=== PATIENT | female | born 1980 | race Caucasian/White ===

== ENCOUNTER 2021-05-27 07:34 | Outpatient (REF) | payer OTHER, SELFPAY ==
[2021-05-27 12:10] LABS: Alanine Aminotransferase 25 U/L (0-31); Anion Gap 11 (12-20); Aspartate Amino Transferase 27 U/L (5-31); Blood Urea Nitrogen 14 mg/dL (9-16); Carbon Dioxide 27 mmol/L (22-29); Chloride 106 mmol/L (96-108); Cholesterol 203 mg/dL; Estimated Glomerular Filt Rate > 60; Glucose Fasting 112 mg/dL (60-99); HDL Cholesterol 40 mg/dL; LDL Cholesterol Calculated 102 mg/dl; Potassium 5.1 mmol/L (3.3-5.1); Sodium 139 mmol/L (135-145); Triglycerides 309 mg/dL
== END 2021-05-27 07:35 | disposition home or self-care (01) ==
LOC: HO.HMGCLDS 07:34
PROVIDERS: PCP Internal Medicine; Visit Provider Internal Medicine
DX: Z00.01 Encounter for general adult medical examination with abnormal findings (principal); E66.9 Obesity, unspecified; E78.1 Pure hyperglyceridemia; I10 Essential (primary) hypertension
CPT/HCPCS: 36415; 80048; 80061; 84450; 84460

== ENCOUNTER 2022-07-04 | Outpatient (REF) | payer OTHER, SELFPAY | END 2022-07-04 00:01 | disposition home or self-care (01) | LOC: HO.LNP | DX: L02.91 Cutaneous abscess, unspecified (principal) | CPT/HCPCS: 87071; 87205 ==

== ENCOUNTER 2022-09-26 12:10 | Outpatient (REF) | payer OTHER, SELFPAY ==
[2022-09-26 13:53] LABS: MANUAL DIFF FLAG NO
[2022-09-26 13:57] LABS: Basophils Absolute Auto 0.1 X10*3/uL (0.0-0.2); Basophils Percent Auto 0.9 % (0-2); Eosinophils Absolute Auto 0.5 X10*3/uL (0.0-0.4); Eosinophils Percent Auto 5.2 % (0-4); Hematocrit 42.8 % (37.0-47.0); Hemoglobin 13.8 g/dl (12.0-16.0); Imm Gran Abs Auto 0.04 X10*3/uL (0.00-0.03); Imm Gran Pct Auto 0.4 % (0.0-0.4); Lymphocytes Absolute Auto 2.1 X10*3/uL (1.2-4.9); Lymphocytes Percent Auto 21.1 % (20-40); Mean Corpuscular HGB Conc 32.2 g/dl (31.0-35.0); Mean Corpuscular Hemoglobin 28.8 pg (27.0-33.0); Mean Corpuscular Volume 89.2 fL (80.0-98.0); Mean Platelet Volume 10.9 fL (9.4-12.3); Monocytes Absolute Auto 0.6 X10*3/uL (0.1-1.2); Monocytes Percent Auto 6.2 % (2-11); Neutrophils Absolute Auto 6.5 x10*3/uL (2.0-8.3); Neutrophils Percent Auto 66.2 % (45-73); Platelet Count 327 X10*3/uL (160-400); Red Cell Distribution Width 14.1 % (11.0-16.0); White Blood Count 9.9 X10*3/uL (4.8-10.8)
[2022-09-26 14:11] LABS: Estimated Average Glucose 120 mg/dL; Hemoglobin A1c % 5.8 %
[2022-09-26 14:21] LABS: Alanine Aminotransferase 21 U/L (0-31); Anion Gap 14 (12-20); Aspartate Amino Transferase 22 U/L (5-31); Blood Urea Nitrogen 11 mg/dL (9-16); Calcium 9.2 mg/dL (8.4-10.2); Carbon Dioxide 25 mmol/L (22-29); Chloride 103 mmol/L (96-108); Cholesterol 198 mg/dL; Estimated Glomerular Filt Rate > 60; Glucose Fasting 99 mg/dL (60-99); HDL Cholesterol 40 mg/dL; LDL Cholesterol Calculated 114 mg/dl; Potassium 4.5 mmol/L (3.3-5.1); Sodium 137 mmol/L (135-145); Triglycerides 221 mg/dL
[2022-09-26 14:44] LABS: TSH reflex Free T4 1.58 uIU/mL (0.32-4.0); Vitamin D 25-OH Total 11.5 ng/mL (>30)
== END 2022-09-26 12:11 | disposition home or self-care (01) ==
LOC: HO.HMGCLDS 12:10
PROVIDERS: PCP Internal Medicine; Visit Provider Internal Medicine
DX: Z00.01 Encounter for general adult medical examination with abnormal findings (principal); R73.01 Impaired fasting glucose; E78.1 Pure hyperglyceridemia; E66.9 Obesity, unspecified
CPT/HCPCS: 36415; 80048; 80061; 82306; 83036; 84443; 84450; 84460; 85025

== ENCOUNTER 2024-02-29 09:39 | Outpatient (AMB) | payer OTHER, SELFPAY ==
--- NOTE | 2024-02-29 09:49 | MHC.PC.OV ---
Vital Signs 02/29/24 09:50 Height 5 ft 3 in Weight 220 lb BMI 39.0 BP 116/80 Blood Pressure Location Rt brachial Position Sitting Pulse 74 Pulse Source Pulse Oximeter Pulse Oximetry (%) 95 Oxygen Delivery Method Room Air Intake Visit Reasons: PE Intake Note: Pt is here today for her PE: mammogram 09/03/21 and papsmear 06/2023 Allergies No Known Allergies Allergy (Verified 02/29/24 10:21) Medication List - Last Reconciled 02/29/24 by Kristel Ruiz MD levonorgestrel (Mirena) intrauterine Tobacco use date assessed: 02/29/24 Dental Screening Dental Screen Date: 02/29/24 Did you have a dental visit in the last 12 months?: Yes Did you have a dental problem in the last 6 months where you did not have access to dental care?: Yes Was dental information given to patient?: Patient has dentist HPI PE HPI Details 43-year-old lady with history of impaired fasting glucose, hypertriglyceridemia, obesity, here today for her physical exam. She had her last mammogram in 2020, and last Pap smear was done June 2022 at [facility], done by Dr. Marcela Ramirez. Currently has a Mirena inserted 2 years ago. At present she has been feeling well, with no complaints at present time, has regular monthly cycles. [facility] Medical History (Updated 02/29/24 @ 14:00 by Kristel Ruiz MD) Vitamin D deficiency Abscess Impaired fasting glucose Hypertriglyceridemia Obesity (BMI 30-39.9) Bunion Uterine fibroid Hypertriglyceridemia Surgical History History of section Family History Father HTN (hypertension) Diabetes mellitus Mother Osteoporosis Medical history non-contributory Maternal Aunt Breast cancer Cervical cancer Maternal Grandfather HTN (hypertension) Brother No problems noted. Brother No problems noted. Sister No problems noted. Social History Housing: House Alcohol intake: current Patient Tobacco Use Status: Never used Tobacco e-Cigarette/Vaping Use: Never Used Current occupational status: employed Cognitive needs: No Hearing needs: No Vision needs: Yes Female Reproductive History Menstrual control method: progestin IUCD Date of last pap smear: 09/02/22 (Shifting vaginal fletcher suggestive of bacterial vaginosis, negative for intraepithelial lesion or malignancy, negative HPV) Other: Goes to [facility] for routine Pap and pelvic exam Questionnaire PHQ-9 Over the last 2 weeks, how often have you been bothered by any of the following problems? 1. Little interest or pleasure in doing things: not at all 2. Feeling down, depressed, or hopeless: not at all 3. Trouble falling or staying asleep, or sleeping too much: several days 4. Feeling tired or having little energy: several days 5. Poor appetite or overeating: not at all 6. Feeling bad about yourself - or that you are a failure or have let yourself or your family down: not at all 7. Trouble concentrating on things, such as reading the newspaper or watching television: not at all 8. Moving or speaking so slowly that other people could have noticed. Or the opposite - being so fidgety or restless that you have been moving around a lot more than usual: not at all 9. Thoughts that you would be better off or of hurting yourself in some way: not at all Total score: 2 Depression Screening Interpretation: Negative Depression Screening Done: Yes 86748 - PHQ-9 Billing: Yes Source: Developed by Drs. Nathan Arceo, Dory Pascual, Harmeet Alvarenga and colleagues, with an educational chris from [employer]. Thrive Questionnaire Date Thrive assessed: 02/29/24 I am a: Patient What is your living situation today?: I have a steady place to live Within the past 12 months, did the food you bought not last and you didn't have the money to get more?: Never true Within the past 12 months, did you worry whether your food would run out before you got money to buy more?: Never true Do you have trouble paying for medicines?: No Do you have trouble getting transportation to medical appointments?: No Do you have trouble paying your heating and electricity bill?: No Do you have trouble taking care of your child, family member or friend?: No Do you have trouble with day-to-day activities such as bathing, preparing meals, shopping, managing finances, etc.?: No Are you currently unemployed and looking for a job?: No Are you interested in more education?: No THRIVE Score: 0 AUDIT C Alcohol Use Questionnaire (AUDIT-C) 1. How often do you have a drink containing alcohol?: Monthly or less 2. How many drinks containing alcohol do you have on a typical day when you are drinking?: 1 or 2 3. How often do you have six or more drinks on one occasion?: Never Total Score: 1 ERIK-7 AMB Questionnaire ERIK-7 Date ERIK - 7 assessed: 02/29/24 Feeling nervous, anxious, or on edge: 0 = Not at all Not being able to stop or control worryin = Not at all Worrying too much about different things: 0 = Not at all Trouble relaxin = Not at all Being so restless that it is hard to sit still: 0 = Not at all Becoming easily annoyed or irritable: 1 = Several days Feeling afraid as if something awful might happen: 0 = Not at all Total ERIK-7 score (0-4 normal; 5-9 mild; 10-14 moderate; 15-21 severe): 1 Source: Developed by Drs. Nathan Arceo, Dory Pascual, Harmeet Alvarenga and colleagues, with an educational chris from [employer]. ERIK-7 Assessment Billing ERIK-7 Assessment Tool: ERIK-7 Assessment 56873 Review of Systems Const Denies headache(s) and Denies malaise Eyes Details: goes to [facility] Denies change in vision ENT Denies headache(s) Card Denies chest pain, Denies rapid heart rate, Denies irregular heart rhythm, Denies lightheadedness and Denies dyspnea Resp Denies dyspnea GI Reports no additional complaints Details: Sees Dr. Ramirez at [facility] for her routine Pap and pelvic exam Reports no additional complaints Musc Denies deformity, Denies arthralgias, Denies joint swelling, Denies limited range of motion, Denies muscle weakness and Denies stiffness Skin/Breast Denies lesions and Denies rash Neuro Denies headache(s) Psych Reports no additional complaints Endo Reports no additional complaints Ian/Lymph Reports no additional complaints Aller/Immun Reports no additional complaints Physical exam (Primary Care) Vital Signs: Last Vital Signs Pulse 74 02/29/24 09:50 BP 116/80 02/29/24 09:50 Pulse Ox 95 02/29/24 09:50 Oxygen Delivery Method Room Air 02/29/24 09:50 BMI result Body Mass Index 39.0 BMI Assessment/Plan discussion: High BMI High, discussed plan: lifestyle, weight reduction, dietary, physical activity and alcohol moderation Tobacco/Smoking Status: Tobacco use Status Tobacco use date assessed 02/29/24 02/29/24 09:54 Patient Tobacco Use Status Never used Tobacco 02/29/24 09:54 e-Cigarette/Vaping Use Never Used 02/29/24 09:54 PHQ-9: PHQ-9 Score PHQ-9: Total score 2 02/29/24 13:48 Depression Screening Interpretation: Negative Thrive Assessment: Date of Thrive Assessment Date Thrive assessed 02/29/24 02/29/24 09:54 Const General: no acute distress, alert and Physically active Nutritional Appearance: obese Orientation/consciousness: patient oriented x3 HENMT Ears: hearing grossly normal bilaterally, TM's normal bilaterally and EAC's normal General nose exam: Normal external nose present and No nasal discharge present Face and sinus: Yes face symmetric Mouth: Normal oral and palatal mucosa present and moist mucous membranes Eyes General: appearance normal, both eyes and all related structures Neck Other: Supple, no lymphadenopathy, thyroid gland nonpalpable, Chest Breast/axilla palpation: normal palpation of the breasts Resp Auscultation: clear to auscultation bilaterally Cardio Rate: regular rate Rhythm: regular rhythm Heart sounds: S1 normal heart sound present and S2 normal heart sound present GI Other: S1-S2 present regular rate and rhythm General: Yes bladder normal to palpation and Yes no CVA tenderness External Female Exam: normal external appearance and normal appearance of the urethra Speculum Exam - Vagina: normal appearance of the vagina, normal palpation and normal vaginal discharge Speculum Exam - Cervix: normal appearance of the cervix and normal palpation Bimanual exam- vagina & uterus: normal bimanual exam, normal palpation, bladder normal to palpation, normal palpation and non-tender Bimanual Exam- Adnexa, other: normal adnexae, no masses, normal and No adnexal tenderness Back/Spine/Pelvis Back: no CVA tenderness Skin General skin exam: no rashes or lesions noted Neuro General: patient oriented x3 Extrem General: Yes full ROM, Yes no joint enlargement, Yes no clubbing, cyanosis or edema, Yes no calf tenderness and Yes normal gait Psych Appearance: grossly normal and well kempt Mental Status: mental status grossly normal Speech and movement: Normal speech and movement present Affect: normal affect Assessment and Plan Assessment & Plan (1) Annual visit for general adult medical examination with abnormal findings: Code(s): Z00.01 - Encounter for general adult medical examination with abnormal findings Plan: Will check appropriate labs. Recommended dental visit every 6 months and regular eye exams, at least every 2 years. Take adequate calcium in diet and vitamin-D 3 at 2000 IU per cap once a day, in addition to weight-bearing exercises to help maintain good muscle tone and weight control. Instructed to do self-breast exam, and recommended to get yearly mammogram. Up-to-date with her cervical cancer screening, goes to [facility] and sees Dr. Ramirez. Screening mammogram ordered. Patient does not want to get any further COVID vaccine this lot want to get flu vaccine, up-to-date with Tdap (2) Vitamin D deficiency: Code(s): E55.9 - Vitamin D deficiency, unspecified Plan: Check vitamin-D level (3) Impaired fasting glucose: Code(s): R73.01 - Impaired fasting glucose Plan: Fasting glucose level ordered, reinforced importance of following a healthy diet and getting regular exercise (4) Hypertriglyceridemia: Code(s): E78.1 - Pure hyperglyceridemia Plan: Fasting lipid panel ordered today. Reinforced importance of following a low-cholesterol diet and getting regular exercise. (5) Obesity (BMI 30-39.9): Code(s): E66.9 - Obesity, unspecified Plan: Discussed need to increase activity and wt reduction. Recommended focusing on improving your health instead of dieting. : Eat Mediterranean diet, limit foods high in fat, sugar, and calories, eat slowly, pay attention to portion sizes, plan your meals ahead of time, start regular physical activity 150 minutes of moderate intensity exercise or 90 minutes/week of vigorous exercise and increase water intake. Orders: Orders Lipid Panel Today E55.9 - Vitamin D deficiency, unspecified, E66.9 - Obesity, unspecified, E78.1 - Pure hyperglyceridemia, R73.01 - Impaired fasting glucose, Z00.01 - Encounter for general adult medical examination with abnormal findings Alanine Aminotransferase Today E55.9 - Vitamin D deficiency, unspecified, E66.9 - Obesity, unspecified, E78.1 - Pure hyperglyceridemia, R73.01 - Impaired fasting glucose, Z00.01 - Encounter for general adult medical examination with abnormal findings Glucose Fasting Today E55.9 - Vitamin D deficiency, unspecified, E66.9 - Obesity, unspecified, E78.1 - Pure hyperglyceridemia, R73.01 - Impaired fasting glucose, Z00.01 - Encounter for general adult medical examination with abnormal findings Vitamin D 25-OH Total Today E55.9 - Vitamin D deficiency, unspecified, E66.9 - Obesity, unspecified, E78.1 - Pure hyperglyceridemia, R73.01 - Impaired fasting glucose, Z00.01 - Encounter for general adult medical examination with abnormal findings Aspartate Amino Transferase Today E55.9 - Vitamin D deficiency, unspecified, E66.9 - Obesity, unspecified, E78.1 - Pure hyperglyceridemia, R73.01 - Impaired fasting glucose, Z00.01 - Encounter for general adult medical examination with abnormal findings MM tomosynthesis screening BI Today Z12.31 - Encounter for screening mammogram for malignant neoplasm of breast Coding Level of Care Code Est Pt Prev Care 40-64y(16801) Diagnoses Annual visit for general adult medical examination with abnormal findings Z00.01 Vitamin D deficiency E55.9 Impaired fasting glucose R73.01 Hypertriglyceridemia E78.1 Obesity (BMI 30-39.9) E66.9 Additional Codes ERIK-7 Assessment Billing - ERIK-7 Assessment Tool: ERIK-7 Assessment 54220 ([id number])
[2024-02-29 09:50] VITALS: BP 116/80; PULSE 74; O2SAT 95; BMI 39.0
== END 2024-02-29 13:13 | disposition home or self-care (01) ==
PROVIDERS: PCP Internal Medicine; Visit Provider Internal Medicine
DX: Z00.00 Encounter for general adult medical examination without abnormal findings (principal); E55.9 Vitamin D deficiency, unspecified; E66.9 Obesity, unspecified; Z68.39 Body mass index [BMI] 39.0-39.9, adult; R73.01 Impaired fasting glucose; E78.1 Pure hyperglyceridemia
CPT/HCPCS: 99396

== ENCOUNTER 2024-03-28 07:56 | Outpatient (REF) | payer OTHER, SELFPAY ==
[2024-03-28 11:49] LABS: Alanine Aminotransferase 21 U/L (0-31); Aspartate Amino Transferase 24 U/L (5-31); Cholesterol 188 mg/dL (<200); Glucose Fasting 112 mg/dL (60-99); HDL Cholesterol 42 mg/dL (>40); LDL Cholesterol Calculated 111 mg/dL (<100); Triglycerides 178 mg/dL (<150); Vitamin D 25-OH Total 27.8 ng/mL (>30)
== END 2024-03-28 07:57 | disposition home or self-care (01) ==
LOC: HO.HMGCLDS 07:56
PROVIDERS: PCP Internal Medicine; Visit Provider Internal Medicine
DX: Z00.01 Encounter for general adult medical examination with abnormal findings (principal); E55.9 Vitamin D deficiency, unspecified; R73.01 Impaired fasting glucose; E78.1 Pure hyperglyceridemia; E66.9 Obesity, unspecified
CPT/HCPCS: 36415; 80061; 82306; 82947; 84450; 84460

== ENCOUNTER 2025-03-02 14:17 | Outpatient (AMB) | payer OTHER, SELFPAY ==
--- NOTE | 2025-03-02 14:31 | MHC.PC.OV ---
Vital Signs 03/02/25 14:32 Height 5 ft 3 in Weight 219 lb 4 oz BMI 38.8 BP 112/78 Blood Pressure Location Lt brachial Position Sitting Respiration 18 Pulse 84 Pulse Source Pulse Oximeter Pulse Oximetry (%) 99 Oxygen Delivery Method Room Air Intake Visit Reasons: PE Intake Note: Pt is here today for her annual physical. Last mammogram 04/21/24 Last pap 09/02/22 Allergies No Known Allergies Allergy (Verified 03/02/25 14:52) Medication List - Last Reconciled 03/02/25 by Kristel Ruiz MD levonorgestrel (Mirena) intrauterine Tobacco use date assessed: 03/02/25 Dental Screening Dental Screen Date: 03/02/25 Did you have a dental visit in the last 12 months?: Yes Did you have a dental problem in the last 6 months where you did not have access to dental care?: No Was dental information given to patient?: Patient has dentist HPI PE HPI Details 44-year-old lady with history of impaired fasting glucose, hypertriglyceridemia, uterine fibroid, here today for her physical exam. He is up-to-date with her breast cancer screening with last mammogram done 04/21/24 with benign findings. Last cervical cancer screening and pelvic exam was done 09/02/2022 again with normal findings. She has been feeling well, with no complaints at present time. [facility] Medical History (Updated 03/02/25 @ 14:56 by Kristel Ruiz MD) Vitamin D deficiency Abscess Impaired fasting glucose Hypertriglyceridemia Obesity (BMI 30-39.9) Bunion Uterine fibroid Hypertriglyceridemia Surgical History History of section Family History Father HTN (hypertension) Diabetes mellitus Mother Osteoporosis Medical history non-contributory Maternal Aunt Breast cancer Cervical cancer Maternal Grandfather HTN (hypertension) Brother No problems noted. Brother No problems noted. Sister No problems noted. Social History Housing: House Alcohol intake: current Patient Tobacco Use Status: Never used Tobacco e-Cigarette/Vaping Use: Never Used Current occupational status: employed Cognitive needs: No Hearing needs: No Vision needs: Yes Questionnaire PHQ-9 Over the last 2 weeks, how often have you been bothered by any of the following problems? 1. Little interest or pleasure in doing things: not at all 2. Feeling down, depressed, or hopeless: more than half the days 3. Trouble falling or staying asleep, or sleeping too much: more than half the days 4. Feeling tired or having little energy: nearly every day 5. Poor appetite or overeating: nearly every day 6. Feeling bad about yourself - or that you are a failure or have let yourself or your family down: not at all 7. Trouble concentrating on things, such as reading the newspaper or watching television: more than half the days 8. Moving or speaking so slowly that other people could have noticed. Or the opposite - being so fidgety or restless that you have been moving around a lot more than usual: not at all 9. Thoughts that you would be better off or of hurting yourself in some way: not at all Total score: 12 Depression Screening Interpretation: Positive Depression Screening Done: Yes 32631 - PHQ-9 Billing: Yes Source: Developed by Drs. Nathan Arceo, Dory Pascual, Harmeet Alvarenga and colleagues, with an educational chris from [employer]. Thrive Questionnaire Date Thrive assessed: 03/02/25 I am a: Patient What is your living situation today?: I have a steady place to live Within the past 12 months, did the food you bought not last and you didn't have the money to get more?: Sometimes True Within the past 12 months, did you worry whether your food would run out before you got money to buy more?: Sometimes True Do you have trouble paying for medicines?: No Do you have trouble getting transportation to medical appointments?: No Do you have trouble paying your heating and electricity bill?: Yes Do you have trouble taking care of your child, family member or friend?: No Do you have trouble with day-to-day activities such as bathing, preparing meals, shopping, managing finances, etc.?: No Are you currently unemployed and looking for a job?: No Are you interested in more education?: No Please select the resources that you would like help with: Utilities Currently or been in a relationship where the following occur: No concerns reported THRIVE Score: 3 AUDIT C Alcohol Use Questionnaire (AUDIT-C) 1. How often do you have a drink containing alcohol?: 2-4 times a month 2. How many drinks containing alcohol do you have on a typical day when you are drinking?: 1 or 2 3. How often do you have six or more drinks on one occasion?: Never Total Score: 2 Score Reviewed/Action Taken: Yes ERIK-7 AMB Questionnaire ERIK-7 Date ERIK - 7 assessed: 03/02/25 Feeling nervous, anxious, or on edge: 0 = Not at all Not being able to stop or control worryin = Several days Worrying too much about different things: 1 = Several days Trouble relaxin = Several days Being so restless that it is hard to sit still: 1 = Several days Becoming easily annoyed or irritable: 1 = Several days Feeling afraid as if something awful might happen: 0 = Not at all Total ERIK-7 score (0-4 normal; 5-9 mild; 10-14 moderate; 15-21 severe): 5 Source: Developed by Drs. Nathan Arceo, Dory Pascual, Harmeet Alvarenga and colleagues, with an educational chris from [employer]. ERIK-7 Assessment Billing ERIK-7 Assessment Tool: ERIK-7 Assessment 54963 Review of Systems Const Denies headache(s) and Denies malaise Eyes Details: goes to [facility] Denies change in vision ENT Denies headache(s) Card Denies chest pain, Denies rapid heart rate, Denies irregular heart rhythm, Denies lightheadedness and Denies dyspnea Resp Denies dyspnea GI Reports no additional complaints Details: Sees Dr. Ramirez at [facility] for her routine Pap and pelvic exam Reports no additional complaints Musc Denies deformity, Denies arthralgias, Denies joint swelling, Denies limited range of motion, Denies muscle weakness and Denies stiffness Skin/Breast Denies lesions and Denies rash Neuro Denies headache(s) Psych Reports no additional complaints Endo Reports no additional complaints Ian/Lymph Reports no additional complaints Aller/Immun Reports no additional complaints Physical exam (Primary Care) Vital Signs: Last Vital Signs Pulse 84 03/02/25 14:32 Resp 18 03/02/25 14:32 BP 112/78 03/02/25 14:32 Pulse Ox 99 03/02/25 14:32 Oxygen Delivery Method Room Air 03/02/25 14:32 BMI result Body Mass Index 38.8 BMI Assessment/Plan discussion: High BMI High, discussed plan: lifestyle, weight reduction, dietary, physical activity and alcohol moderation Tobacco/Smoking Status: Tobacco use Status Tobacco use date assessed 03/02/25 03/02/25 14:33 Patient Tobacco Use Status Never used Tobacco 03/02/25 14:33 e-Cigarette/Vaping Use Never Used 03/02/25 14:33 PHQ-9: PHQ-9 Score PHQ-9: Total score 12 03/02/25 14:55 Depression Screening Interpretation: Positive Thrive Assessment: Date of Thrive Assessment Date Thrive assessed 03/02/25 03/02/25 14:33 Currently or been in a relationship where the following occur: No concerns reported Const General: no acute distress, alert and Physically active Nutritional Appearance: obese Orientation/consciousness: patient oriented x3 HENMT Ears: hearing grossly normal bilaterally, TM's normal bilaterally and EAC's normal General nose exam: Normal external nose present and No nasal discharge present Face and sinus: Yes face symmetric Mouth: Normal oral and palatal mucosa present and moist mucous membranes Eyes General: appearance normal, both eyes and all related structures Neck Other: Supple, no lymphadenopathy, thyroid gland nonpalpable, Chest Breast/axilla palpation: normal palpation of the breasts Resp Auscultation: clear to auscultation bilaterally Cardio Rate: regular rate Rhythm: regular rhythm Heart sounds: S1 normal heart sound present and S2 normal heart sound present GI Other: S1-S2 present regular rate and rhythm General: Yes bladder normal to palpation and Yes no CVA tenderness External Female Exam: normal external appearance and normal appearance of the urethra Speculum Exam - Vagina: normal appearance of the vagina, normal palpation and normal vaginal discharge Speculum Exam - Cervix: normal appearance of the cervix and normal palpation Bimanual exam- vagina & uterus: normal bimanual exam, normal palpation, bladder normal to palpation, normal palpation and non-tender Bimanual Exam- Adnexa, other: normal adnexae, no masses, normal and No adnexal tenderness Back/Spine/Pelvis Back: no CVA tenderness Skin Other: Ill-defined palpable tender lump on left upper arm Neuro General: patient oriented x3 Extrem General: Yes full ROM, Yes no joint enlargement, Yes no clubbing, cyanosis or edema, Yes no calf tenderness and Yes normal gait Psych Appearance: grossly normal and well kempt Mental Status: mental status grossly normal Speech and movement: Normal speech and movement present Affect: normal affect Coding Level of Care Code Est Pt Prev Care 40-64y(63712) Diagnoses Annual visit for general adult medical examination with abnormal findings Z00.01 Hypertriglyceridemia E78.1 Impaired fasting glucose R73.01 Pain of left upper arm M79.622 Laterality: left Additional Codes ERIK-7 Assessment Billing - ERIK-7 Assessment Tool: ERIK-7 Assessment 43972 ([id number]) PHQ-9 - 58783 - PHQ-9 Billing: Yes ([id number]) Assessment & Plan Assessment & Plan (1) Annual visit for general adult medical examination with abnormal findings: Code(s): Z00.01 - Encounter for general adult medical examination with abnormal findings Plan: Will check appropriate labs. Recommended dental visit every 6 months and regular eye exams, at least every 2 years. Take adequate calcium in diet and vitamin-D 3 at 2000 IU per cap once a day, in addition to weight-bearing exercises to help maintain good muscle tone and weight control. Instructed to do self-breast exam, and recommended to get yearly mammogram, starting at age 40. Reminded to get her yearly flu shot, and get an updated tetanus diphtheria booster this year, which she can get at the pharmacy. (2) Hypertriglyceridemia: Code(s): E78.1 - Pure hyperglyceridemia Category: Medical Plan: Fasting lipid panel ordered, reinforced importance of following a healthy diet and getting at least 30 minutes of moderate exercise 3 to 4 times a week (3) Impaired fasting glucose: Code(s): R73.01 - Impaired fasting glucose Category: Medical Plan: Your previous fasting blood sugars were elevated above 100 mg/dL. Impaired glucose metabolism increases the risk for developing diabetes mellitus type 2, as well as heart attack and stroke later on. Lifestyle changes that promotes weight loss, healthy eating habits, and regular exercise are important, and can prevent the progression to diabetes (4) Pain of upper arm: Code(s): M79.629 - Pain in unspecified upper arm Qualifiers: Laterality: left Qualified Code(s): M79.622 - Pain in left upper arm Plan: Ultrasound left upper extremity nonvascular ordered. May try applying diclofenac gel to affected area 3 to 4 times a day as needed for pain relief Orders: Orders Aspartate Amino Transferase 03/02/25 E55.9 - Vitamin D deficiency, unspecified, E66.9 - Obesity, unspecified, E78.1 - Pure hyperglyceridemia, R73.01 - Impaired fasting glucose, Z00.01 - Encounter for general adult medical examination with abnormal findings Basic Metabolic Panel Fasting 03/02/25 E55.9 - Vitamin D deficiency, unspecified, E66.9 - Obesity, unspecified, E78.1 - Pure hyperglyceridemia, R73.01 - Impaired fasting glucose, Z00.01 - Encounter for general adult medical examination with abnormal findings Hemoglobin A1c 03/02/25 E55.9 - Vitamin D deficiency, unspecified, E66.9 - Obesity, unspecified, E78.1 - Pure hyperglyceridemia, R73.01 - Impaired fasting glucose, Z00.01 - Encounter for general adult medical examination with abnormal findings Vitamin D 25-OH Total 03/02/25 E55.9 - Vitamin D deficiency, unspecified, E66.9 - Obesity, unspecified, E78.1 - Pure hyperglyceridemia, R73.01 - Impaired fasting glucose, Z00.01 - Encounter for general adult medical examination with abnormal findings US extremity nonvascular 03/02/25 M79.629 - Pain in unspecified upper arm Lipid Panel 03/02/25 E55.9 - Vitamin D deficiency, unspecified, E66.9 - Obesity, unspecified, E78.1 - Pure hyperglyceridemia, R73.01 - Impaired fasting glucose, Z00.01 - Encounter for general adult medical examination with abnormal findings Alanine Aminotransferase 03/02/25 E55.9 - Vitamin D deficiency, unspecified, E66.9 - Obesity, unspecified, E78.1 - Pure hyperglyceridemia, R73.01 - Impaired fasting glucose, Z00.01 - Encounter for general adult medical examination with abnormal findings Medications: New diclofenac sodium 3% 1 appl topical BID PRN 100 grams 0RF pain
[2025-03-02 14:32] VITALS: BP 112/78; PULSE 84; RESP 18; O2SAT 99; BMI 38.8
--- OUTSIDE RECORDS SUMMARY | 2025-03-02 15:45 | XMS_ITS | Clinical Summary ---
Author Organization [facility] it Address [address] [place] [address] Care Team Providers Care Bus Monitor Name Role Phone Unavailable Primary Care Provider Unavailabl e Surgical History Surgery Date Site/Laterality Comments SECTION PROCEDURE: HISTORICAL DELIVERY; COMMENT: x2 Family History Medical History Relation Name Comments Breast cancer Aunt 1 Hypertension Father Other: allergy issues Father Other: osteoparosis Mother Relation Name Status Comments Aunt 1 Aunt 2 Father Mother Social History Tobacco Use Types Packs/Day Years Used Date Smoking Tobacco: Never Smokeless Tobacco: Never Alcohol Use Standard Drinks/Week Comments Yes 0 (1 standard drink = 0.6 oz pur e alcohol) Comments Unknown Sex and Gender Information Value Date Recorded Sex Assigned at Not on file Legal Sex Female 9:32 AM EST Gender Identity Not on file Sexual Orientation Not on file Obstetrics History Plan of Treatment Health Maintenance Due Date Last Done Comments Breast Cancer Screening 1980 Hepatitis B Vaccines (1 of 3 - 19+ 3-dose series) 1999 Cervical Cancer Screening: P ap Smear 2001 COVID-19 Vaccine (2023-2 5 season) 2024 Influenza Vaccine (#1) 2024 DTaP,Tdap,and Td Vaccines (2 - Td or Tdap) 02/06/2025 02/06/2015 HIB Vaccines Aged Out No longer eligi ble based on patient's age to complete this topic HPV Vaccines Aged Out No longer eligi ble based on patient's age to complete this topic Hepatitis A Vaccines Aged Out No long er eligible based on patient's age to complete this topic IPV Vaccines Aged Out No longer eligi ble based on patient's age to complete this topic MMR Vaccines Aged Out No longer eligi ble based on patient's age to complete this topic Meningococcal ACWY Vaccine Aged Out N o longer eligible based on patient's age to complete this topic Meningococcal B Vacine Aged Out No lo nger eligible based on patient's age to complete this topic Pneumococcal Vaccine: Pediat rics (0 to 5 Years) and At-Risk Patients (6 to 64 Years) Aged Out No longer eligi ble based on patient's age to complete this topic RSV Immunization Patients Un joe 20 months Aged Out No longer eligible b ased on patient's age to complete this topic Varicella Vaccines Aged Out No longer eligible based on patient's age to complete this topic
--- OUTSIDE RECORDS SUMMARY | 2025-03-02 15:46 | XMS_ITS | Data Portability ---
Author Organization [facility], Main Office Address [address] [facility] [place] [address] [place] [phone] Assessment No assessment recorded. Plan of Treatment Reminders Order Date Submit Date Provider Last Modified By Organization Details Last Modified Time Details Appointments None recorde d. Lab None recorde d. 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 Had z franny when sx first started . 2015 016 [email or web address] [facility], [address] [place], [address], 6 19:31:29 Procedures None recorde d. Surgeries None recorde d. Imaging x-ray, chest, 2 view - chronic cough x 1.5 months 2015 [facility] [address] [place], [address], 6 09:23:10 Medication Orders cyclobe nzaprin e 5 mg tablet 2015 016 [id number], [address] [place], [address], 6 16:47:55 meloxic am 7.5 mg tablet 2015 016 [facility]win[id number], [address] [place], [address], 6 16:47:55 Nasacor t 55 mcg nasal spray aerosol 2015 016 mdalessandro [id number], [address] [place], [address], 6 16:36:15 cetiriz ine 10 mg tablet 2015 016 mdalessandro [id number], [address] [place], [address], 6 16:36:15 Patient TargetsNo targets recorded. Patient Instructions Encounter Date Encounter Id Patient Instructions Last Modified By Organization Details Last Modified Time 02/28/2016 [id number] cough: care instructions mdalessandro Not available 02/28/2016 16:36:15 spirometry testing* mdalessandro Not available 02/28/2016 16:36:15 To call or return for worsening or concerns [email or web address] Not available 02/28/2016 15:52:30 I have reviewed the note and agree with the assessment and plan of care. mdalessandro Not available 02/28/2016 16:36:15 03/21/2016 [id number] shoulder stretches: exercises mdalessandro Not available 03/21/2016 16:47:55 neck spasm: exercises mdalessandro Not available 03/21/2016 16:47:55 spirometry testing* mdalessandro Not available 03/21/2016 16:47:55 To call or return for worsening or concerns [email or web address] Not available 03/21/2016 13:18:32 Medications (OTC, herbal therapies, supplements) reviewed and reconciled with patient and or caregiver, including potential side effects, drug interactions, instructions, and the consequences of not taking medication. Reviewed potential barriers to medication adherence, such as side effects from medication or cost of medication.I have reviewed the note and agree with the assessment and plan of care. 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 Had z franny when sx first started. Referring Physician: Jose Johnson, Family Medicine, Encounter Date: 03/21/2016 Results Created Date Observation Date Name Description Value Unit Range Abnormal Flag Note LastModifiedBy Organization Detail LastModifiedTime 03/21/20 16 03/21/2016 melony metry testi ng* Spirometry normal normal Not Available In-Offi ce Order Internal Use Only DO Not Attach Compendium DO Not Attach Compendium, Do Not Delete/merge, [id number] 03/21/2016 12:58:53 02/28/20 16 02/28/2016 melony metry testi ng* Spirometry abnorm al abnormal Not Available In-Office Order Internal Use Only DO Not Attach Compendium DO Not Attach Compendium, Do Not Delete/merge, [id number] 02/28/2016 15:53:35 02/28/20 16 melony metry testi ng* No observ ation record ed. [email or web address] Not Available 2015 16:28:18 02/28/20 16 02/28/2016 chest 2 views front al and lat Chest 2 Views Fronta l and Lat INDICA TION: cough RELEVA NT CLINIC AL INFORM ATION/ CLINIC AL QUESTI ON: COMPAR ALESSANDRO: 02/02/20 14 FINDIN GS: LINES AND TUBES: None. LUNGS AND PLEURA : No pneumo thorax . No pleura l effusi on. The lungs are clear and the pulmon zulema vascul arity is normal . HEART, MEDIAS TINUM AND MARGAUX: Normal . BONES AND SOFT TISSUE S: No acute findin gs. IMPRES TERI: Stable , negati ve Dictat ed By: Tobin Gomez MD Dictat ed Date/T zelalem: 5:44 pm Review ed By: Tobin Gomez MD Signed By: Tobin Gomez MD Signed Date/T zelalem: 5:44 pm Transc ribed By: AMINATA Transc ribed Date/T zelalem: 5:44 pm Patien t Class[facility] [address] [place], [address], 03/13/2016 09:23:10 03/01/20 16 02/28/2016 chest 2 views front al and lat Chest 2 Views Fronta l and Lat INDICA TION: cough RELEVA NT CLINIC AL INFORM ATION/ CLINIC AL QUESTI ON: COMPAR ALESSANDRO: 02/02/20 14 FINDIN GS: LINES AND TUBES: None. LUNGS AND PLEURA : No pneumo thorax . No pleura l effusi on. The lungs are clear and the pulmon zulema vascul arity is normal . HEART, MEDIAS TINUM AND MARGAUX: Normal . BONES AND SOFT TISSUE S: No acute findin gs. IMPRES TERI: Stable , negati ve Dictat ed By: Tobin Gomez MD Dictat ed Date/T zelalem: 5:44 pm Review ed By: Tobin Gomez MD Signed By: Tobin Gomez MD Signed Date/T zelalem: 5:44 pm Transc ribed By: AMINATA Transc ribed Date/T zelalem: 5:44 pm Patien t Class: Outpat ient [facility] (Outpt Imaging) [address] [place] [address], [place], [address], 03/06/2016 13:23:26 03/21/20 16 melony metry testi ng* No observ ation record ed. [email or web address] Not Available 2015 13:07:48 Result Notes None recorded. Problems Name Problem SNOMED Code Status Onset Date Resolution Date Notes Provider Name and Address Organization Details Recorded Time Left upper quadrant pain 821100944 Active MIRELA Bonilla [address] [facility] [address], [place], [address], [facility] 6 13:14:36 Screenin g for malignan t neoplasm of cervix Completed 201306/13/2014 RECORDED 02/01/20 14 3:40PM BY JERE MARIO MA, ANNOTATI ON/ADDEN DUM MIRELA Bonilla [address] [facility] [address], [place], [address], [facility] 6 13:14:36 Influenz a vaccine needed [id number] 06 Completed 200806/13/2014 RECORDED 10/06/20 09 10:11AM BY JAMES DE, HISTORIC AL SUMMARY Jose Johnson, [facility] [address] [facility] [address], [facility] [place], [address], [facility] 6 13:14:36 Acute laryngit is [id number] Completed 201306/13/2014 IMPRESSI ON: X 3 DAYS, C/W VIRAL INFECTIO N, RECOMMEN D HYDRATIO N AND VOICE REST, RTC 3 WEEKS IF NOT RESOLVED ; RECORDED 02/01/20 14 3:40PM BY JERE MARIO MA, CHELIATI ON/ADDEN DUM Jose Johnson, [facility] [address] [facility] [address], [place], [address], [facility] 6 13:14:35 Motion sickness 10855889 Completed 201306/13/2014 RECORDED 02/01/20 14 3:40PM BY JERE MARIO MA, JOHN ON/ADDEN DUM Jose Johnson, [facility] [address] [facility] [address], [place], [address], [facility] 6 13:14:36 Vomiting of pregnanc y 83749478 Completed 201306/13/2014 IMPRESSI ON: D/T EARLY PREGNANC Y AND POSSIBLY VIRAL ILLNESS WELL. ADVISED RE IMPORTAN CE OF REST, SMALL AMTS OF FLUIDS AT A TIME. HAS RX FOR ZOFRAN WHICH IS SOMEWHAT EFFECTIV E, WILL CALL OB FOR REFILL. FMLA FILLED OUT WITH PT AND WORK NOTE PROVIDED FOR THURSDAY. TO CONTINUE WITH REG F/U WITH OB.; RECORDED 02/01/20 14 3:40PM BY JERE MARIO MA, ANNOTATI ON/ADDEN DUM Jose Johnson, [facility] [address] [facility] [address], [place], [address], [facility] 6 13:14:35 Nausea and vomiting 42109568 Completed 201306/13/2014 IMPRESSI ON: NEGATIVE . TO MONITOR SXS, SHOULD THEY PERSISTN > ANOTHER FEW DAYS MAY CONSIDER REPEAT TEST.; RECORDED 02/01/20 14 3:40PM BY JERE MARIO MA, ANNOTATI ON/ADDANYA Johnson, [facility] [address] [facility] [address], [place], [address], [facility] 6 13:14:36 Patient status finding [id number] Active Jose Johnson, [facility] [address] [facility] [address], [place], [place], [address], [facility] 6 13:14:36 Adult health examinat ion Completed 201306/13/2014 RECORDED 02/01/20 14 3:40PM BY JERE MARIO MA, ANNOTATI ON/ADDANYA Johnson, [facility] [address] [facility] [address], [place], [address], [facility] 6 13:14:36 Screenin g for malignan t neoplasm of cervix Completed 201307/06/2014 RECORDED 02/01/20 14 3:40PM BY JERE MARIO MA, ANNOTATI ON/ADDANYA Johnson, [facility] [address] [facility] [address], [place], [address], [facility] 6 13:14:36 Influenz a vaccine needed [id number] 06 Completed 200807/06/2014 RECORDED 10/06/20 09 10:11AM BY JAMES DE, HISTORIC AL SUMMARY [facility] [address] [facility] [address], [place], [address], [facility] 6 13:14:36 Acute laryngit is 2388397 Completed 201307/06/2014 IMPRESSI ON: X 3 DAYS, C/W VIRAL INFECTIO N, RECOMMEN D HYDRATIO N AND VOICE REST, RTC 3 WEEKS IF NOT RESOLVED ; RECORDED 02/01/20 14 3:40PM BY JERE MARIO MA, JOHN ON/DIEGO Johnson, [facility] [address] [facility] [address], [place], [address], [facility] 6 13:14:35 Motion sickness 01342979 Completed 201307/06/2014 RECORDED 02/01/20 14 3:40PM BY JERE MARIO MA, ANNOTATI ON/DIEGO Johnson, [facility] [address] [facility] [address], [place], [address], [facility] 6 13:14:36 Vomiting of pregnanc y 46503327 Completed 201307/06/2014 IMPRESSI ON: D/T EARLY PREGNANC Y AND POSSIBLY VIRAL ILLNESS WELL. ADVISED RE IMPORTAN CE OF REST, SMALL AMTS OF FLUIDS AT A TIME. HAS RX FOR ZOFRAN WHICH IS SOMEWHAT EFFECTIV E, WILL CALL OB FOR REFILL. FMLA FILLED OUT WITH PT AND WORK NOTE PROVIDED FOR THURSDAY. TO CONTINUE WITH REG F/U WITH OB.; RECORDED 02/01/20 14 3:40PM BY JERE MARIO MA, ANNOTATI ON/DIEGO Johnson, [facility] [address] [address], [place], [address], [facility] 6 13:14:36 Nausea and vomiting 56235404 Completed 201307/06/2014 IMPRESSI ON: NEGATIVE . TO MONITOR SXS, SHOULD THEY PERSISTN > ANOTHER FEW DAYS MAY CONSIDER REPEAT TEST.; RECORDED 02/01/20 14 3:40PM BY JERE MARIO MA, ANNOTATI ON/DIEGO Johnson, [facility] [address] [facility] [address], [place], [address], [facility] 6 13:14:36 Adult health examinat ion Completed 201307/06/2014 RECORDED 02/01/20 14 3:40PM BY JERE MARIO MA, JOHN ON/ADDEN DUM Jose Johnson, [facility] [address] [facility] [address], [place], [address], [facility] 6 13:14:36 Screenin g for malignan t neoplasm of cervix Completed 201307/07/2014 RECORDED 02/01/20 14 3:40PM BY JERE MARIO MA, JOHN ON/ADDEN DUM Jose Johnson, [facility] [address] [facility] [address], [place], [address], [facility] 6 13:14:36 Influenz a vaccine needed [id number] 06 Completed 200807/07/2014 RECORDED 10/06/20 09 10:11AM BY JAMES DE, HISTORIC AL SUMMARY Jose Johnson, [facility] [address] [facility] [address], [place], [address], [facility] 6 13:14:36 Acute laryngit is 2418621 Completed 201307/07/2014 IMPRESSI ON: X 3 DAYS, C/W VIRAL INFECTIO N, RECOMMEN D HYDRATIO N AND VOICE REST, RTC 3 WEEKS IF NOT RESOLVED ; RECORDED 02/01/20 14 3:40PM BY JERE MARIO MA, JOHN ON/DIEGO Johnson, [facility] [address] [facility] [address], [place], [address], [facility] 6 13:14:35 Motion sickness 68365755 Completed 201307/07/2014 RECORDED 02/01/20 14 3:40PM BY JERE MARIO MA, JOHN ON/DIEGO Johnson, [facility] [address] [facility] [address], [place], [address], [facility] 6 13:14:36 Vomiting of pregnanc y 72586219 Completed 201307/07/2014 IMPRESSI ON: D/T EARLY PREGNANC Y AND POSSIBLY VIRAL ILLNESS WELL. ADVISED RE IMPORTAN CE OF REST, SMALL AMTS OF FLUIDS AT A TIME. HAS RX FOR ZOFRAN WHICH IS SOMEWHAT EFFECTIV E, WILL CALL OB FOR REFILL. FMLA FILLED OUT WITH PT AND WORK NOTE PROVIDED FOR THURSDAY. TO CONTINUE WITH REG F/U WITH OB.; RECORDED 02/01/20 14 3:40PM BY JERE MARIO MA, JOHN ON/DIEGO Johnson, [facility] [address] [address], [place], [address], [facility] 6 13:14:36 Nausea and vomiting 64002009 Completed 201307/07/2014 IMPRESSI ON: NEGATIVE . TO MONITOR SXS, SHOULD THEY PERSISTN > ANOTHER FEW DAYS MAY CONSIDER REPEAT TEST.; RECORDED 02/01/20 14 3:40PM BY JERE MARIO MA, JOHN ON/DIEGO Johnson, [place] [address] [address], [place], [address], [facility] 6 13:14:36 Adult health examinat ion Completed 201307/07/2014 RECORDED 02/01/20 14 3:40PM BY JERE MARIO MA, JOHN ON/DIEGO Johnson [place] [address] [address], [place], [address], [facility] 6 13:14:36 Cough 09858877 Active Iesha lambert, [facility] 6 16:47:55 Muscle spasm of cervical muscle of neck 75857250880 4 Active MIRELA Bonilla [address] [place] [address], [place], [address], [facility] 6 09:12:30 Pain in right arm 347575286 Active MIRELA Bonilla [address] [place] [address], [place], [address], [facility] 6 09:12:30 Problem Notes None recorded. Procedures Surgical History None recorded. Imaging Results Imaging Date Name Status LastModified by Organiz ation Details LastModified Time 02/28/2016 spirometry testing* completed Information not available 02/28/2016 16:28:18 02/28/2016 chest 2 views frontal and lat [email or web address] [address] [place] [address], [address], 03/13/2016 09:23:10 02/28/2016 chest 2 views frontal and lat completed [facility] (Outpt Imaging) [address] [place] [address], [address], 03/06/2016 13:23:26 03/21/2016 spirometry testing* completed Information not available 03/21/2016 13:07:48 Procedure Notes None recorded. Medical Equipment None Reported. Allergies Allergen ID Allergen Name Allergen Category Reaction Reaction Severity Criticality Documentation Date Start Date Code Code System Note Provider Name and Address Organization Details Recorded Time 2656 No known allergy (situatio n) Not available Not available Not available Not available 06/13/2014 [id number] SNDARRION Jasonrebecca Johnson, [facility] [address] [facility] [address], [place], [address], [facility] 6 15:52:30 Medications Name Sig Start Date Stop Date Status Note LastModified by Organization Details LastModified Time cetirizin e 10 mg tablet Take 1 tablet every day by oral route as directed for 30 days. 2015 active Not Available Not Available Not Avai lable meloxicam 7.5 mg tablet Take 1 tablet twice a day by oral route as directed for 30 days. 2015 active Not Available Not Available Not Avai lable scopolami ne 1 mg over 3 days transderm al patch EVERY 72 HRS 03/02 completed RECORDED 04/02/20 10 10:07AM BY IESHA WOLFE MD, MEDICATI ON AUTO-ALEXANDRA CTIVATIO N; Not Available Not Available Not Available cyclobenz aprine 5 mg tablet Take 1-2 tablet(s ) 3 TIMES A DAY by oral route. 2015 active Not Available Not Available Not Avai lable omeprazol e 30 MINUTES BEFORE BREAKFAS T DAILY 2013 active Not Available Not Available Not Avai lable Nasacort 55 mcg nasal spray aerosol Take 2 sprays every day by nasal route as directed for 30 days. 2015 active Not Available Not Available Not Avai lable Vitals Date Recorded Oxygen saturation Oxygen saturation in Arterial blood by Pulse oximetry Body temperature Heart rate Body height Body weight Body mass index (BMI) Systolic blood pressure Diastolic blood pressure Provider Name and Address Organization Details Last Updated DateTime 6 96 % 96 % 99.1 [degF] 90 /min 160.02 cm 03318.8 4348 g 36.1 kg/m2 115 mm[Hg] 77 mm[Hg] Rubina Minor MA [facility] 6 15:33:12 Date Recorded Body height Heart rate Body weight Body temperature Body mass index (BMI) Oxygen saturation Oxygen saturation in Arterial blood by Pulse oximetry Systolic blood pressure Diastolic blood pressure Provider Name and Address Organization Details Last Updated DateTime 6 160.02 cm 69 /min 46698.2 5111 g 97.8 [degF] 36 kg/m2 97 % 97 % 122 mm[Hg] 72 mm[Hg] Hernan Canseco [facility] 6 12:58:52 Social History None recorded. Functional Status None recorded. Mental Status None recorded. Family History Nothing Reported. Medical History No medical history recorded. Gynecological HistoryNo gynecological history recorded. Obstetrics History GPAL:G 0 P 0 0 0 0 Immunizations Vaccine Type Date Status Note Provider Nam e and Address Organization Details Recorded Time Novel [id number] , all formulations 9 completed Not Available [facility] 06/13/2014 13:37:00 Past Encounters Encounter ID Performer Location Encounter Start Date Encounter Closed Date Diagnosis/Indication Diagnosis SNOMED-CT Code Diagnosis ICD10 Code Diagnosis Note [id number] auto[facility]Comm erce [address] [facility] [address] [place] [address] 12/27/2009 00:00:00 [id number] auto[facility] erce [address] [facility] [address] [place] , [place] [id number] 04/02/2011 00:00:00 [id number] auto[facility] erce [address] [facility] [address] [place], [place] [address] 07/29/2011 00:00:00 [id number] auto[facility]Comm erce [address] [facility] [address] [facility] [place] [id number] 01/31/2014 00:00:00 [id number] Iesha GomezAnupamSabrina wilcox Main Office [address] [facility] [address] [facility] [place], [place] [id number] 02/28/2016 15:24:13 02/28/2016 16:46:09 Cough 88771583 R05 Chronic cough x 1.5 months, took a zpak and has a proair inhaler she ahs been using Will try nasonex and allergy med for PND, recheck in 2-3 weeks. Spirometry done today does show obstructio n but may be due to phsyiologi eyal variant. Will repeat at her f/u visit. Continue inhaler as needed, nasonex and zyrtec daily x 14 days, lots of fluids, may use delsym at night for cough. [id number] Iesha wilcox Main Office [address] [facility] [address] [place], [place] [address] 03/21/2016 12:48:19 03/21/2016 13:35:33 Cough 88985730 R05 Chronic cough x 2 months, still ongoing, spirometry is normal today and CXR was negative however she is still couhging and feels the inahler helps with her sx. Continue zyrtec, nasonex and inhaler as needed, f/u with pulm, may need formal PFT testing. Muscle spa sm of cervical muscle of neck 2742646493 04 M62.838 Seems chronic large spasm of right trap/ neck muscles on right, massage may helpful, heat 4 times daily, may use icy hot or tiger balm, roll a tennis bal over area, meloxicam and cyclobenza sheila as needed. Call/ return for worsening or if no improvemen t. Health Concerns Section Related Observation LastModified by Organization Detai ls LastModified Time None Recorded Concern Status LastModified by Organization Details LastModified Time None Recorded Advance Directives Directive None Recorded Payers Encounter Date Sequence Insurance Name Policy Number Policy Nix Covered Member ID Nix Member ID Guarantor Name 02/28/2016 1 [facility] [id number] Rajesh Headley [id number] David Headley Zepeda 03/21/2016 1 [facility] ([facility] [id number] Rajesh Contrerase [id number] David Headley Zepeda Notes Date Note Type Note Provider Name and Address Organization Details Recorded Time 02/28/2016 text/html Upper Respirator y SymptomsReported bypatient.Quality:colo red phlegm(green/ yellow);wheezy cough Duration:1.5 months Context:sick contact Associated Symptoms:morning cough;sore throatNotes:Sx x 1.5 months w/ sore throat, ear pain, denies fever. She was seen 2 weeks ago at , prescribed zpak and an inhaler she took entire rx and sx are unchanged, States she feels worse. Iesha lambert, [facility] 02/28/2016 16:36:16 03/21/2016 text/html Musculoskeletal PainReported bypatient.Location:rig ht neck; right shoulder; right arm Quality:aching;tinglin g; numbness Severity:worsening Duration:present <1 month Timing:constant Associated Symptoms:no fever; no weak limbs;tinglingNotes:Mikel brownlee c/o right arm pain x 8 days, starts in right neck and radiates down arm with numbness and tingling, decreased grasp, states she cannot lift passed her shoulder, and cannot lift her daughter, hold a grocery bag or open juice/ jars due to weakness. No injury or trauma that she can recall, no heavy lifting, she does not lift weights.Upper Respiratory SymptomsReported bypatient.Quality:colo red phlegm(yellow) Duration:2 months Context:no sick contacts Associated Symptoms:morning cough; right ear painNotes:presents in f/u chronic cough, cough not as bad but still continues, has right ear pain, yellow sputums, inhaler helps when coughing fit comes on. Taking flonase and zyrtec as wel as inhaler. Iesha lambert, [facility] 03/21/2016 16:47:56 OBGyn Episode No OBEpisode recorded.
== END 2025-03-02 15:13 | disposition home or self-care (01) ==
LOC: HO.HMCC 14:18
PROVIDERS: PCP Internal Medicine; Visit Provider Internal Medicine
DX: Z00.01 Encounter for general adult medical examination with abnormal findings (principal); E78.1 Pure hyperglyceridemia; R73.01 Impaired fasting glucose; M79.622 Pain in left upper arm

== ENCOUNTER → 2025-03-02 14:17 | Outpatient (BNVA) | payer OTHER, SELFPAY | PROVIDERS: PCP Internal Medicine; Visit Provider Internal Medicine | DX: Z00.01 Encounter for general adult medical examination with abnormal findings (principal); E78.1 Pure hyperglyceridemia; R73.01 Impaired fasting glucose; M79.622 Pain in left upper arm | CPT/HCPCS: 96127 ==

== ENCOUNTER 2025-03-23 14:27 | Outpatient (REF) | payer OTHER, SELFPAY ==
--- OUTSIDE RECORDS SUMMARY | 2025-03-16 16:49 | XMS_ITS | Clinical Summary ---
Author Organization [facility] it Address [address] [place] [address] Care Team Providers Care Engine Repairer Name Role Phone Unavailable Primary Care Provider [...] 2001 COVID-19 Vaccine (2023-2 5 season) 2024 DTaP,Tdap,and Td Vaccines (2 - Td or Tdap) 02/06/2025 02/06/2015 Influenza Vaccine (Season Ended) 2025 HIB Vaccines Aged Out No longer eligi [...] age to complete this topic Meningococcal B Vaccine Aged Out No l onger eligible based on patient's age to complete [...]
--- OUTSIDE RECORDS SUMMARY | 2025-03-16 16:49 | XMS_ITS | Data Portability ---
Author Organization [facility], Main Office Address [address] [facility] [address] [place] [phone] Assessment No assessment recorded. Plan of Treatment [...] when sx first started . 2015 016 galinarebekah [facility], [address] [place], [address], 6 19:31:29 Procedures None recorde d. Surgeries None recorde d. Imaging x-ray, chest, 2 view - chronic cough x 1.5 months 2015 [facility]16 [facility] [address] [place], [address], 6 09:23:10 Medication Orders cyclobe nzaprin e 5 mg tablet 2015 016 [id number], [address] [place], [address], 6 16:47:55 meloxic am 7.5 mg tablet 2015 016 erwinMicroblrro [id number], [address] [place], [address], 6 16:47:55 Nasacor t 55 mcg nasal spray aerosol 2015 016 mdalessandro [id number], [address] [place], [address], 6 16:36:15 cetiriz ine 10 mg tablet 2015 016 mdalessandro [id number], [address] [place], [address], 6 16:36:15 Patient TargetsNo targets recorded. Patient Instructions Encounter Date Encounter Id Patient Instructions Last Modified By Organization Details Last Modified Time 02/28/2016 [id number] cough: care instructions [email or web address] Not available 02/28/2016 16:36:15 spirometry testing* mdalessandro Not available 02/28/2016 16:36:15 To call or return for worsening or concerns [email or web address] Not available 02/28/2016 15:52:30 I have reviewed the note and agree with the assessment and plan of care. [email or web address] Not available 02/28/2016 16:36:15 03/21/2016 [id number] shoulder stretches: exercises [email or web address] Not available 03/21/2016 [...] Not available 03/21/2016 16:47:55 Reason for Referral Supervisor Liquid Yeast Referral for C ough chronic couhg x [...] DO Not Attach Compendium, Do Not Delete/merge, [id number] 03/21/2016 12:58:53 02/28/20 16 02/28/2016 melony metry testi ng* Spirometry abnorm al abnormal Not Available In-Office Order Internal Use Only DO Not Attach Compendium DO Not Attach Compendium, Do Not Delete/merge, [id number] 02/28/2016 15:53:35 02/28/20 16 melony metry testi [...] 5:44 pm Patien t Class[facility] [address] [place], [address], 03/13/2016 09:23:10 03/01/20 16 02/28/2016 chest 2 [...] 5:44 pm Patien t Class: Outpat ient [facility] (Outpt Imaging) [address] [place] [address], [place], [address], 03/06/2016 13:23:26 03/21/20 16 melony metry testi ng* No observ ation record ed. [email or web address] Not Available 2015 13:07:48 Result Notes None recorded. Problems Name Problem SNOMED Code Status Onset Date Resolution Date Notes Provider Name and Address Organization Details Recorded Time Left upper quadrant pain 494804074 Active MIRELA Bonilla [address] [facility] [address], [place], [address], [facility] 6 13:14:36 Screenin g for malignan t neoplasm of cervix Completed 201306/13/2014 RECORDED 02/01/20 14 3:40PM BY JERE MARIO MA, ANNOTATI ON/ADDEN DUM MIRELA Bonilla [address] [facility] [address], [place], [address], [facility] 6 13:14:36 Influenz a vaccine needed [id number] 06 Completed 200806/13/2014 RECORDED 10/06/20 09 10:11AM BY JAMES DE, HISTORIC AL SUMMARY Jose Johnson, [facility] [address] [facility] [address], [place], [phone], [facility] 6 13:14:36 Acute laryngit is 9194358 Completed 201306/13/2014 IMPRESSI ON: X 3 DAYS, C/W VIRAL INFECTIO N, RECOMMEN D HYDRATIO N AND VOICE REST, RTC 3 WEEKS IF NOT RESOLVED ; RECORDED 02/01/20 14 3:40PM BY JERE MARIO MA, CHELIATI ON/ADDEN DUM Jose Johnson, [facility] [address] [facility] [address], [place], [phone], [facility] 6 13:14:35 Motion sickness 36665763 Completed 201306/13/2014 RECORDED 02/01/20 14 3:40PM BY JERE MARIO MA, JOHN ON/ADDEN DUM Jose Johnson, [facility] [address] [facility] [address], [place], [phone], [facility] 6 13:14:36 Vomiting of pregnanc y 73995389 Completed 201306/13/2014 IMPRESSI ON: D/T EARLY PREGNANC [...] MARIO MA, ANNOTATI ON/ADDEN DUM Jose Johnson, [facility] [address] [facility] [address], [place], [address], [facility] 6 13:14:35 Nausea and vomiting 90887222 Completed 201306/13/2014 IMPRESSI ON: NEGATIVE . TO MONITOR SXS, SHOULD THEY PERSISTN > ANOTHER FEW DAYS MAY CONSIDER REPEAT TEST.; RECORDED 02/01/20 14 3:40PM BY JERE MARIO MA, ANNOTATI ON/ADDANYA Johnson, [facility] [address] [facility] [address], [place], [address], [facility] 6 13:14:36 Patient status finding [id number] Active Jose Johnson, [facility] [address], [place], [place], [address], [facility] 6 13:14:36 Adult health examinat ion Completed 201306/13/2014 RECORDED 02/01/20 14 3:40PM BY JERE MARIO MA, ANNOTATI ON/ADDANYA Johnson, [facility] [address], [place], [address], [facility] 6 13:14:36 Screenin g for malignan t neoplasm of cervix Completed 201307/06/2014 RECORDED 02/01/20 14 3:40PM BY JERE MARIO MA, ANNOTATI ON/ADDANYA Johnson, [facility] [address] [facility] [address], [place], [phone], [facility] 6 13:14:36 Influenz a vaccine needed [id number] 06 Completed 200807/06/2014 RECORDED 10/06/20 09 10:11AM BY JAMES DE, HISTORIC AL SUMMARY [facility] [address], [place], [address], [facility] 6 13:14:36 Acute laryngit is 4535039 Completed 201307/06/2014 IMPRESSI ON: X 3 DAYS, C/W VIRAL INFECTIO N, RECOMMEN D HYDRATIO N AND VOICE REST, RTC 3 WEEKS IF NOT RESOLVED ; RECORDED 02/01/20 14 3:40PM BY JERE MARIO MA, JOHN ON/DIEGO Johnson, [facility] [address], [place], [address], [facility] 6 13:14:35 Motion sickness 79552133 Completed 201307/06/2014 RECORDED 02/01/20 14 3:40PM BY JERE MARIO MA, ANNOTATI ON/DIEGO Johnson, [facility] [address], [place], [address], [facility] 6 13:14:36 Vomiting of pregnanc y 13836153 Completed 201307/06/2014 IMPRESSI ON: D/T EARLY PREGNANC [...] BY JERE MARIO MA, ANNOTATI ON/DIEGO Johnson, [facility] [address] [place] [address], [place], [address], [facility] 6 13:14:36 Nausea and vomiting 79419587 Completed 201307/06/2014 IMPRESSI ON: NEGATIVE . TO MONITOR SXS, SHOULD THEY PERSISTN > ANOTHER FEW DAYS MAY CONSIDER REPEAT TEST.; RECORDED 02/01/20 14 3:40PM BY JERE MARIO MA, ANNOTATI ON/DIEGO Johnson, [facility] [address], [place], [address], [facility] 6 13:14:36 Adult health examinat ion Completed 201307/06/2014 RECORDED 02/01/20 14 3:40PM BY JERE MARIO MA, JOHN ON/ADDEN DUM Jose Johnson, [facility] [address], [place], [address], [facility] 6 13:14:36 Screenin g for malignan t neoplasm of cervix Completed 201307/07/2014 RECORDED 02/01/20 14 3:40PM BY JERE MARIO MA, JOHN ON/ADDEN DUM Jose Johnson, [facility] [address] [facility], [place], [address], [facility] 6 13:14:36 Influenz a vaccine needed [id number] 06 Completed 200807/07/2014 RECORDED 10/06/20 09 10:11AM BY JAMES DE, HISTORIC AL SUMMARY Jose Johnson, [facility] [address] [facility] [address], [place], [address], [facility] 6 13:14:36 Acute laryngit is 2162579 Completed 201307/07/2014 IMPRESSI ON: X 3 DAYS, C/W VIRAL INFECTIO N, RECOMMEN D HYDRATIO N AND VOICE REST, RTC 3 WEEKS IF NOT RESOLVED ; RECORDED 02/01/20 14 3:40PM BY JERE MARIO MA, JOHN ON/DIEGO Johnson, [facility] [address] [facility] [address], [place], [address], [facility] 6 13:14:35 Motion sickness 80870132 Completed 201307/07/2014 RECORDED 02/01/20 14 3:40PM BY JERE MARIO MA, JOHN ON/DIEGO Johnson, [facility] [address] [facility] [address], [place], [address], [facility] 6 13:14:36 Vomiting of pregnanc y 96532960 Completed 201307/07/2014 IMPRESSI ON: D/T EARLY PREGNANC [...] BY JERE MARIO MA, JOHN ON/DIEGO Johnson, [facility] [address] [address], [place], [address], [facility] 6 13:14:36 Nausea and vomiting 59930951 Completed 201307/07/2014 IMPRESSI ON: NEGATIVE . TO MONITOR SXS, SHOULD THEY PERSISTN > ANOTHER FEW DAYS MAY CONSIDER REPEAT TEST.; RECORDED 02/01/20 14 3:40PM BY JERE MARIO MA, JOHN ON/DIEGO Johnson, [address] [place] [address] [place] [address], [place], [phone], [facility] 6 13:14:36 Adult health examinat ion Completed 201307/07/2014 RECORDED 02/01/20 14 3:40PM BY JERE MARIO MA, JOHN ON/DIEGO Johnson [place] [address] [place] [address], [place], [address], [facility] 6 13:14:36 Cough 46549742 Active Iesha lambert, [facility] 6 16:47:55 Muscle spasm of cervical muscle of neck 76156659353 4 Active MIRELA Bonilla [address] [place] [address], [place], [address], [facility] 6 09:12:30 Pain in right arm 113884215 Active MIRELA Bonilla [address] [place] [address], [place], [address], [facility] 6 09:12:30 Problem Notes None recorded. Procedures Surgical History None recorded. Imaging Results Imaging Date Name Status LastModified by Organiz ation Details LastModified Time 02/28/2016 spirometry testing* completed Information not available 02/28/2016 16:28:18 02/28/2016 chest 2 views frontal and lat [facility] [address] [place] [address], [address], 03/13/2016 09:23:10 02/28/2016 chest 2 views frontal and lat completed [facility] (Outpt Imaging) [address] [place] [address], [address], 03/06/2016 13:23:26 03/21/2016 spirometry testing* completed Information not available 03/21/2016 13:07:48 Procedure Notes None recorded. Medical Equipment None Reported. Allergies Allergen ID Allergen Name Allergen Category Reaction Reaction Severity Criticality Documentation Date Start Date Code Code System Note Provider Name and Address Organization Details Recorded Time 2656 No known allergy (situatio n) Not available Not available Not available Not available 06/13/2014 24997 6003 SNDARRION Jasonrebecca Johnson, [facility] [address] [facility] [address], [place], [phone], [facility] 6 15:52:30 Medications Name Sig Start Date [...] % 99.1 [degF] 90 /min 160.02 cm 54709.8 4348 g 36.1 kg/m2 115 mm[Hg] 77 mm[Hg] Rubina Minor MA [facility] 6 15:33:12 Date Recorded Body height Heart rate Body weight Body temperature Body mass index (BMI) Oxygen saturation Oxygen saturation in Arterial blood by Pulse oximetry Systolic blood pressure Diastolic blood pressure Provider Name and Address Organization Details Last Updated DateTime 6 160.02 cm 69 /min 37526.2 5111 g 97.8 [degF] 36 kg/m2 97 % 97 % 122 mm[Hg] 72 mm[Hg] Hernan Canseco [facility] 6 12:58:52 Social History None recorded. Functional Status None recorded. Mental Status None recorded. Family History Nothing Reported. Medical History No medical history recorded. Gynecological HistoryNo gynecological history recorded. Obstetrics History GPAL:G 0 P 0 0 0 0 Immunizations Vaccine Type Date Status Note Provider Nam e and Address Organization Details Recorded Time Novel [id number] , all formulations 9 completed Not Available [facility]2014 13:37:00 Past Encounters Encounter ID Performer Location Encounter Start Date Encounter Closed Date Diagnosis/Indication Diagnosis SNOMED-CT Code Diagnosis ICD10 Code Diagnosis Note [id number] [facility] [address] [facility] [address] [facility] [place] [address] 12/27/2009 00:00:00 [id number] [facility] [facility] [address] [facility] [address] [place] , [place] [address] 04/02/2011 00:00:00 [id number] [facility] [facility] [address] [facility] [address] [place], [place] [address] 07/29/2011 00:00:00 [id number] auto[facility] erce [address] [facility] [address] [facility] [place] [address] 01/31/2014 00:00:00 [id number] Iesha GomezAnupamSabrina wilcox Main Office [address] [facility] [address] [facility] [place], [place] [address] 02/28/2016 15:24:13 02/28/2016 16:46:09 Cough 12337414 R05 Chronic cough x 1.5 months, took [...] may use delsym at night for cough. [id number] Iesha wilcox Main Office [address] [facility] [address] [place], [place] [address] 03/21/2016 12:48:19 03/21/2016 13:35:33 Cough 92623769 R05 Chronic cough x 2 months, still ongoing, spirometry is normal today and CXR was negative however she is still couhging and feels the inahler helps with her sx. Continue zyrtec, nasonex and inhaler as needed, f/u with pulm, may need formal PFT testing. Muscle spa sm of cervical muscle of neck 4479969887 04 M62.838 Seems chronic large spasm of [...] Nix Member ID Guarantor Name 02/28/2016 1 [facility] [id number] 23 Rajesh Headley [id number] David Headley Zepeda 03/21/2016 1 [facility] [id number] 23 Rajesh Contrerase [id number] David Headley Zepeda Notes Date Note Type [...] unchanged, States she feels worse. Iesha lambert, [facility] 02/28/2016 16:36:16 03/21/2016 text/html Musculoskeletal PainReported bypatient.Location:rig [...] zyrtec as wel as inhaler. Iesha lambert, [facility] 03/21/2016 16:47:56 OBGyn Episode No OBEpisode recorded.
--- NOTE | ~2025-03-23 | US_ITS ---
EXAMINATION: US EXTREMITY, NONVASCULAR CLINICAL INFORMATION: Left upper arm pain/tender to palpation with lump. COMPARISON: 02/07/2019, similar complaint. TECHNIQUE: Grayscale and color Doppler ultrasound imaging of the left upper arm was performed in the region of pain/palpable lump. FINDINGS: No evidence of mass, abnormal lymph nodes, abnormal fluid collection, or other abnormality in the area of interest. Negative examination. US/US Extremity Nonvas Limited LT IMPRESSION: No ultrasonographic abnormality in the region of concern. Electronically signed by: Sohail Ortez MD 03/27/2025 09:55 AM EDT
--- OUTSIDE RECORDS SUMMARY | 2025-03-23 17:01 | XMS_ITS | Clinical Summary ---
Author Organization [facility] it Address [address] [place] [address] Care Team Providers Care Orchestra Musician Name Role Phone Unavailable Primary Care Provider [...]
--- OUTSIDE RECORDS SUMMARY | 2025-03-23 17:02 | XMS_ITS | Data Portability ---
Author Organization [facility], Main Office Address [address] [place] [phone] Assessment No assessment recorded. Plan of Treatment [...] sx first started . [email or web address] [facility], [address] [place], [address], 6 19:31:29 Procedures None recorde d. Surgeries None recorde d. Imaging x-ray, chest, 2 view - chronic cough x 1.5 months 2015 [facility] [address] [place], [address], 6 09:23:10 Medication Orders cyclobe nzaprin e 5 mg tablet 2015 016 [id number], [address] [place], [address], 6 16:47:55 meloxic am 7.5 mg tablet 2015 016 [employer] [id number], [address] [place], [address], 6 16:47:55 Nasacor t 55 mcg nasal spray aerosol 2015 016 mdalessandro [id number], [address] [place], [address], 6 16:36:15 cetiriz ine 10 mg tablet 2015 016 mdalessandro [id number], [address] [place], [address], 6 16:36:15 Patient TargetsNo targets recorded. Patient Instructions Encounter Date Encounter Id Patient Instructions Last Modified By Organization Details Last Modified Time 02/28/2016 [id number] cough: care instructions [email or web address] Not available 02/28/2016 16:36:15 spirometry testing* [email or web address] Not available 02/28/2016 16:36:15 To call or return for worsening or concerns [email or web address] Not available 02/28/2016 15:52:30 I have reviewed the note and agree with the assessment and plan of care. 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 x [...] DO Not Attach Compendium, Do Not Delete/merge, [id number] 03/21/2016 12:58:53 02/28/20 16 02/28/2016 melony metry testi ng* Spirometry abnorm al abnormal Not Available In-Office Order Internal Use Only DO Not Attach Compendium DO Not Attach Compendium, Do Not Delete/merge, [id number] 02/28/2016 15:53:35 02/28/20 16 melony metry testi [...] 5:44 pm Patien t Class[facility] [address] [place], [address], 03/13/2016 09:23:10 03/01/20 16 02/28/2016 chest 2 [...] 5:44 pm Patien t Class: Outpat ient [facility] (Outpt Imaging) [address] [place] [address], [place], [address], 03/06/2016 13:23:26 03/21/20 16 melony metry testi ng* No observ ation record ed. [email or web address] Not Available 2015 13:07:48 Result Notes None recorded. Problems Name Problem SNOMED Code Status Onset Date Resolution Date Notes Provider Name and Address Organization Details Recorded Time Left upper quadrant pain 148069847 Active MIRELA Bonilla [address] [facility] [address], [place], [address], [facility] 6 13:14:36 Screenin g for malignan t neoplasm of cervix Completed 201306/13/2014 RECORDED 02/01/20 14 3:40PM BY JERE MARIO MA, ANNOTATI ON/ADDEN DUM MIRELA Bonilla [address] [facility] [address], [place], [address], [facility] 6 13:14:36 Influenz a vaccine needed 04161046064 06 Completed 200806/13/2014 RECORDED 10/06/20 09 10:11AM BY JAMES DE, HISTORIC AL SUMMARY Jose Johnson, [facility] [address] [facility] [address], [place], [address], [facility] 6 13:14:36 Acute laryngit is [id number] Completed 201306/13/2014 IMPRESSI ON: X 3 DAYS, C/W VIRAL INFECTIO N, RECOMMEN D HYDRATIO N AND VOICE REST, RTC 3 WEEKS IF NOT RESOLVED ; RECORDED 02/01/20 14 3:40PM BY JERE MARIO MA, CHELIATI ON/ADDEN DUM Jose Johnson, [facility] [address] [facility] [address], [place], [address], [facility] 6 13:14:35 Motion sickness 50860454 Completed 201306/13/2014 RECORDED 02/01/20 14 3:40PM BY JERE MARIO MA, JOHN ON/ADDEN DUM Jose Johnson, [facility] [address] [facility] [address], [place], [address], [facility] 6 13:14:36 Vomiting of pregnanc y 48897597 Completed 201306/13/2014 IMPRESSI ON: D/T EARLY PREGNANC [...] MARIO MA, ANNOTATI ON/ADDEN DUM Jose Johnson, [facility] [address] [facility] [address], [place], [address], [facility] 6 13:14:35 Nausea and vomiting 39584896 Completed 201306/13/2014 IMPRESSI ON: NEGATIVE . TO MONITOR SXS, SHOULD THEY PERSISTN > ANOTHER FEW DAYS MAY CONSIDER REPEAT TEST.; RECORDED 02/01/20 14 3:40PM BY JERE MARIO MA, ANNOTATI ON/ADDANYA Johnson, [facility] [address] [facility] [address], [place], [address], [facility] 6 13:14:36 Patient status finding [id number] Active Jose Johnson, [facility] [address] [facility] [address], [place], [place], [address], [facility] 6 13:14:36 Adult health examinat ion Completed 201306/13/2014 RECORDED 02/01/20 14 3:40PM BY JERE MARIO MA, ANNOTATI ON/ADDANYA Johnson, [facility] [address] [facility] [address], [place], [address], [facility] 6 13:14:36 Screenin g for malignan t neoplasm of cervix Completed 201307/06/2014 RECORDED 02/01/20 14 3:40PM BY JREE MARIO MA, ANNOTATI ON/ADDANYA Johnson, [facility] [address] [facility] [address], [place], [address], [facility] 6 13:14:36 Influenz a vaccine needed 93552372297 06 Completed 200807/06/2014 RECORDED 10/06/20 09 10:11AM BY JAMES DE, HISTORIC AL SUMMARY [facility] [address] [facility] [address], [place], [address], [facility] 6 13:14:36 Acute laryngit is 7027989 Completed 201307/06/2014 IMPRESSI ON: X 3 DAYS, C/W VIRAL INFECTIO N, RECOMMEN D HYDRATIO N AND VOICE REST, RTC 3 WEEKS IF NOT RESOLVED ; RECORDED 02/01/20 14 3:40PM BY JERE MARIO MA, JOHN ON/DIEGO Johnson, [facility] [address] [facility] [address], [place], [address], [facility] 6 13:14:35 Motion sickness 55049303 Completed 201307/06/2014 RECORDED 02/01/20 14 3:40PM BY JERE MARIO MA, ANNOTATI ON/DIEGO Johnson, [facility] [address] [facility] [address], [place], [address], [facility] 6 13:14:36 Vomiting of pregnanc y 62884727 Completed 201307/06/2014 IMPRESSI ON: D/T EARLY PREGNANC [...] BY JERE MARIO MA, ANNOTATI ON/DIEGO Johnson, [facility] [address] [address], [place], [address], [facility] 6 13:14:36 Nausea and vomiting 72329059 Completed 201307/06/2014 IMPRESSI ON: NEGATIVE . TO MONITOR SXS, SHOULD THEY PERSISTN > ANOTHER FEW DAYS MAY CONSIDER REPEAT TEST.; RECORDED 02/01/20 14 3:40PM BY JERE MARIO MA, ANNOTATI ON/DIEGO Johnson, [facility] [address] [facility] [address], [place], [address], [facility] 6 13:14:36 Adult health examinat ion Completed 201307/06/2014 RECORDED 02/01/20 14 3:40PM BY JERE MARIO MA, JOHN ON/ADDEN DUM Jose Johnson, [facility] [address] [facility] [address], [place], [address], [facility] 6 13:14:36 Screenin g for malignan t neoplasm of cervix Completed 201307/07/2014 RECORDED 02/01/20 14 3:40PM BY JERE MARIO MA, JOHN ON/ADDEN DUM Jose Johnson, [facility] [address] [facility] [address], [place], [address], [facility] 6 13:14:36 Influenz a vaccine needed [id number] 06 Completed 200807/07/2014 RECORDED 10/06/20 09 10:11AM BY JAMES DE, HISTORIC AL SUMMARY Jose Johnson, [facility] [address] [facility] [address], [place], [address], [facility] 6 13:14:36 Acute laryngit is 5979742 Completed 201307/07/2014 IMPRESSI ON: X 3 DAYS, C/W VIRAL INFECTIO N, RECOMMEN D HYDRATIO N AND VOICE REST, RTC 3 WEEKS IF NOT RESOLVED ; RECORDED 02/01/20 14 3:40PM BY JERE MARIO MA, JOHN ON/DIEGO Johnson, [facility] [address] [facility] [address], [place], [address], [facility] 6 13:14:35 Motion sickness 73056006 Completed 201307/07/2014 RECORDED 02/01/20 14 3:40PM BY JERE MARIO MA, JOHN ON/DIEGO Johnson, [facility] [address] [facility] [address], [place], [address], [facility] 6 13:14:36 Vomiting of pregnanc y 53858033 Completed 201307/07/2014 IMPRESSI ON: D/T EARLY PREGNANC [...] BY JERE MARIO MA, JOHN ON/DIEGO Johnson, [facility] [address] [address], [place], [address], [facility] 6 13:14:36 Nausea and vomiting 55105549 Completed 201307/07/2014 IMPRESSI ON: NEGATIVE . TO MONITOR SXS, SHOULD THEY PERSISTN > ANOTHER FEW DAYS MAY CONSIDER REPEAT TEST.; RECORDED 02/01/20 14 3:40PM BY JERE MARIO MA, JOHN ON/DIEGO Johnson, [address] [address], [place], [address], [facility] 6 13:14:36 Adult health examinat ion Completed 201307/07/2014 RECORDED 02/01/20 14 3:40PM BY JERE MARIO MA, JOHN ON/DIEGO Johnson [address] [address], [place], [address], [facility] 6 13:14:36 Cough 22844803 Active Iesha lambert, [facility] 6 16:47:55 Muscle spasm of cervical muscle of neck 27663627771 4 Active MIRELA Bonilla [address] [place] [address], [place], [address], [facility] 6 09:12:30 Pain in right arm 327359218 Active MIRELA Bonilla [address] [place] [address], [place], [address], [facility] 6 09:12:30 Problem Notes None recorded. Procedures Surgical History None recorded. Imaging Results Imaging Date Name Status LastModified by Organiz ation Details LastModified Time 02/28/2016 spirometry testing* completed Information not available 02/28/2016 16:28:18 02/28/2016 chest 2 views frontal and lat [facility] [address] [place] [address], [address], 03/13/2016 09:23:10 02/28/2016 chest 2 views frontal and lat completed [facility] (Out[facility]) [address] [place] [address], [address], 03/06/2016 13:23:26 03/21/2016 spirometry testing* completed Information not available 03/21/2016 13:07:48 Procedure Notes None recorded. Medical Equipment None Reported. Allergies Allergen ID Allergen Name Allergen Category Reaction Reaction Severity Criticality Documentation Date Start Date Code Code System Note Provider Name and Address Organization Details Recorded Time 2656 No known allergy (situatio n) Not available Not available Not available Not available 06/13/2014 58052 6003 SNDARRION Jasonrebecca Johnson, [facility] [address] [facility] [address], [place], [address], [facility] 6 15:52:30 Medications Name Sig Start Date [...] % 99.1 [degF] 90 /min 160.02 cm 62041.8 4348 g 36.1 kg/m2 115 mm[Hg] 77 mm[Hg] Rubina Minor MA [facility] 6 15:33:12 Date Recorded Body height Heart rate Body weight Body temperature Body mass index (BMI) Oxygen saturation Oxygen saturation in Arterial blood by Pulse oximetry Systolic blood pressure Diastolic blood pressure Provider Name and Address Organization Details Last Updated DateTime 6 160.02 cm 69 /min 73345.2 5111 g 97.8 [degF] 36 kg/m2 97 % 97 % 122 mm[Hg] 72 mm[Hg] Hernan Canseco [facility] 6 12:58:52 Social History None recorded. Functional Status None recorded. Mental Status None recorded. Family History Nothing Reported. Medical History No medical history recorded. Gynecological HistoryNo gynecological history recorded. Obstetrics History GPAL:G 0 P 0 0 0 0 Immunizations Vaccine Type Date Status Note Provider Nam e and Address Organization Details Recorded Time Novel [id number] , all formulations 9 completed Not Available [facility] 06/13/2014 13:37:00 Past Encounters Encounter ID Performer Location Encounter Start Date Encounter Closed Date Diagnosis/Indication Diagnosis SNOMED-CT Code Diagnosis ICD10 Code Diagnosis Note [id number] [facility]Comm erce [address] [facility] [address] [place] [address] 12/27/2009 00:00:00 [id number] [facility] er[facility] [address] [facility] [address] [place] , [place] [address] 04/02/2011 00:00:00 [id number] [employer] [facility] [address] [facility] [address] [place], [place] [address] 07/29/2011 00:00:00 [id number] auto[employer] erce [address] [facility] [address] [facility] [place] [address] 01/31/2014 00:00:00 [id number] Iesha GomezAnupamSarbina wilcox Main Office [address] [facility] [address] [facility] [place]DA, [place] [address] 02/28/2016 15:24:13 02/28/2016 16:46:09 Cough [id number] R05 Chronic cough x 1.5 months, took [...] may use delsym at night for cough. [id number] Iesha wilcox Main Office [address] [facility] [address] [place], [place] [address] 03/21/2016 12:48:19 03/21/2016 13:35:33 Cough 75770193 R05 Chronic cough x 2 months, still ongoing, spirometry is normal today and CXR was negative however she is still couhging and feels the inahler helps with her sx. Continue zyrtec, nasonex and inhaler as needed, f/u with pulm, may need formal PFT testing. Muscle spa sm of cervical muscle of neck [id number] 04 M62.838 Seems chronic large spasm of [...] Nix Member ID Guarantor Name 02/28/2016 1 [facility] [id number] Rajesh Headley [id number] David Headley Zepeda 03/21/2016 1 [facility] [id number] 23 Rajesh Contrerase [id number] David Headley Zepeda Notes Date Note Type [...] unchanged, States she feels worse. Iesha lambert, [facility] 02/28/2016 16:36:16 03/21/2016 text/html Musculoskeletal [...] zyrtec as wel as inhaler. Iesha lambert, [facility] 03/21/2016 16:47:56 OBGyn Episode No OBEpisode recorded.
== END 2025-03-23 14:28 | disposition home or self-care (01) ==
LOC: HO.HMGCX 14:27
PROVIDERS: PCP Internal Medicine; Visit Provider Internal Medicine
DX: M79.622 Pain in left upper arm (principal)
CPT/HCPCS: 76882

== ENCOUNTER → 2025-03-23 14:28 | Outpatient (BNV) | payer OTHER, SELFPAY | PROVIDERS: PCP Internal Medicine; Visit Provider Radiology Diagnostic Radiology | DX: M79.622 Pain in left upper arm (principal); R22.32 Localized swelling, mass and lump, left upper limb | CPT/HCPCS: 76882 ==

== ENCOUNTER 2025-04-22 11:06 | Outpatient (REF) | payer OTHER, SELFPAY ==
--- OUTSIDE RECORDS SUMMARY | 2025-04-22 11:08 | XMS_ITS | Clinical Summary ---
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
[2025-04-22 13:51] LABS: Estimated Average Glucose 114 mg/dL; Hemoglobin A1C 132.9364 umol/L; Hemoglobin A1c % 5.6 % (<6.0); Total Hemoglobin (HGBA1C) 3484.4966 umol/L
[2025-04-22 14:01] LABS: Alanine Aminotransferase 25 U/L (0-31); Anion Gap 11 (12-20); Aspartate Amino Transferase 28 U/L (5-31); Blood Urea Nitrogen 12 mg/dL (9-16); Calcium 8.5 mg/dL (8.4-10.2); Carbon Dioxide 25 mmol/L (22-29); Chloride 107 mmol/L (96-108); Cholesterol 202 mg/dL (<200); Estimated Glomerular Filt Rate > 60; Glucose Fasting 106 mg/dL (60-99); HDL Cholesterol 44 mg/dL (>40); LDL Cholesterol Calculated 119 mg/dL (<100); Sodium 139 mmol/L (135-145); Triglycerides 197 mg/dL (<150)
[2025-04-22 14:17] LABS: Vitamin D 25-OH Total 16.1 ng/mL (>30)
== END 2025-04-22 11:07 | disposition home or self-care (01) ==
LOC: HO.HMGCLDS 11:06
PROVIDERS: PCP Internal Medicine; Visit Provider Internal Medicine
DX: Z00.01 Encounter for general adult medical examination with abnormal findings (principal); E66.9 Obesity, unspecified; E78.1 Pure hyperglyceridemia; R73.01 Impaired fasting glucose; E55.9 Vitamin D deficiency, unspecified
CPT/HCPCS: 36415; 80048; 80061; 82306; 83036; 84450; 84460